=== PATIENT | female | born 1960 | race Caucasian/White ===

== ENCOUNTER 2021-07-29 10:39 | Emergency (ER) | payer OTHER ==
[2021-07-29 11:16] VITALS: BP 120/61; PULSE 56; TEMP 98.1; BMI 30.9
== END 2021-07-29 13:45 | disposition home or self-care (01) ==
LOC: JERFT 10:39
DX: S60.041A Contusion of right ring finger without damage to nail, initial encounter (principal); Y99.9 Unspecified external cause status
CPT/HCPCS: 73140-TC-RT-FY; 99283-25

== ENCOUNTER 2023-12-19 12:47 | Observation (INO) | payer OTHER ==
[2023-12-19] MEDS ORDERED: ONDANSETRON 4 MG/2 ML VIAL ONE ×2 (14:53→18:12)
[2023-12-19] MEDS ORDERED: ACETAMINOPHEN INJECTION 100 ML IVPB ONE (14:53)
[2023-12-19] MEDS ORDERED: FAMOTIDINE 20 MG/50 ML IVPB 20 MG/50 ML MG IVPB ONE (14:53)
[2023-12-19 14:58] LABS: BASO % 0.1 % (0-2.0); HEMATOCRIT 47.8 % (32.4-45.2); HEMOGLOBIN 16.2 GM/dL (10.7-15.3); LYMPH % 6.7 % (8-40); MCH 28.8 pg (25.7-33.7); MCHC 33.8 g/dl (32.0-36.0); MEAN CELL VOLUME 85.1 fl (80-96); MEAN PLT VOLUME 9.6 fl (7.5-11.1); NEUT % 84.2 % (42.8-82.8); PLATELET COUNT 248 10^3/uL (134-434); RBC 5.62 M/mm3 (3.60-5.2); RDW 14.2 % (11.6-15.6); WHITE BLOOD COUNT 13.3 K/mm3 (4.0-10.0)
[2023-12-19] MEDS: ACETAMINOPHEN 1000 MG/100 ML BAG IVPB ONE (15:02)
[2023-12-19] MEDS: ONDANSETRON 4 MG/2 ML VIAL IVPUSH ONE ×2 (15:02→18:15)
[2023-12-19] MEDS: LACTATED RINGERS SOLUTION 1000 ML INFUS.BAG IV ONE ×2 (15:02→18:15)
[2023-12-19] MEDS: FAMOTIDINE 20 MG/50 ML IVPB 20 MG/50 ML MG IVPB ONE (15:03)
[2023-12-19 15:18] LABS: POTASSIUM 3.7 mmol/L (3.5-5.1)
[2023-12-19 15:22] LABS: ALBUMIN 3.8 g/dl (3.4-5.0); BLOOD UREA NITROGEN 55.5 mg/dL (7-18); CALCIUM 9.8 mg/dL (8.5-10.1)
[2023-12-19 15:25] LABS: CREATININE 1.3 mg/dL (0.55-1.3)
[2023-12-19 15:26] LABS: TOT PROT 7.6 g/dl (6.4-8.2)
[2023-12-19 15:27] LABS: BILIRUBIN,TOTAL 0.5 mg/dL (0.2-1)
[2023-12-19 15:32] LABS: MAGNESIUM 2.5 mg/dL (1.8-2.4)
[2023-12-19] MEDS: SODIUM CHLORIDE 1,000 ML IV STA (17:02)
[2023-12-19] MEDS ORDERED: MAG HYDROX/AL HYDROX/SIMETH 30 ML UNIT-DOSE CUP ONE (18:12)
[2023-12-19] MEDS: MAG HYDROX/AL HYDROX/SIMETH 30 ML UNIT-DOSE CUP PO ONE (18:36)
[2023-12-19] MEDS: SODIUM CHLORIDE 1,000 ML IV SCH (23:53)
[2023-12-20 05:11] VITALS: BMI 32.7
[2023-12-20] MEDS: LEVOTHYROXINE NA 150 MCG TABLET PO SCH (06:12)
[2023-12-20] MEDS: HEPARIN NA (PORCINE) 5,000 UNITS/ML 1ML VIAL SQ SCH (06:12)
[2023-12-20 08:52] LABS: HEMATOCRIT 38.2 % (32.4-45.2); HEMOGLOBIN 13.2 GM/dL (10.7-15.3); MCH 29.2 pg (25.7-33.7); MCHC 34.6 g/dl (32.0-36.0); MEAN CELL VOLUME 84.5 fl (80-96); MEAN PLT VOLUME 9.3 fl (7.5-11.1); PLATELET COUNT 180 10^3/uL (134-434); RBC 4.52 M/mm3 (3.60-5.2); WHITE BLOOD COUNT 5.5 K/mm3 (4.0-10.0)
[2023-12-20 09:02] LABS: POTASSIUM 3.5 mmol/L (3.5-5.1)
[2023-12-20 09:05] LABS: MAGNESIUM 2.3 mg/dL (1.8-2.4)
[2023-12-20 09:08] LABS: CREATININE 0.6 mg/dL (0.55-1.3)
[2023-12-20 09:09] LABS: BILIRUBIN,TOTAL 0.4 mg/dL (0.2-1)
[2023-12-20 09:18] LABS: ALBUMIN 2.8 g/dl (3.4-5.0); BLOOD UREA NITROGEN 23.7 mg/dL (7-18); CALCIUM 8.2 mg/dL (8.5-10.1); TOT PROT 5.5 g/dl (6.4-8.2)
[2023-12-20] MEDS: amLODIPine BESYLATE 5 MG TABLET (FP) PO SCH (10:42)
[2023-12-20] MEDS: ATENOLOL 50 MG TABLET (FP) PO SCH (13:34)
[2023-12-20 15:30] VITALS: RESP 18
[2023-12-21 06:39] VITALS: TEMP 97.9
[2023-12-21 09:11] VITALS: BP 115/67; PULSE 63
== END 2023-12-21 14:01 | disposition home or self-care (01) ==
LOC: JER 12:47 → JERBED 20:19 → INTOOBSV 22:45 → OBSVTOIN 22:45 → J5S 12-20 04:39
PROVIDERS: ADMIT Internal Medicine
PROC: 3E033NZ Introduction of Analgesics, Hypnotics, Sedatives into Peripheral Vein, Percutaneous Approach (ICD-10-PCS; principal; 2023-12-19)
PROC: 3E033GC Introduction of Other Therapeutic Substance into Peripheral Vein, Percutaneous Approach (ICD-10-PCS; 2023-12-19)
PROC: 3E0337Z Introduction of Electrolytic and Water Balance Substance into Peripheral Vein, Percutaneous Approach (ICD-10-PCS; 2023-12-19)
PROC: 3E033GC Introduction of Other Therapeutic Substance into Peripheral Vein, Percutaneous Approach (ICD-10-PCS; 2023-12-19)
DX: A08.4 Viral intestinal infection, unspecified (principal); E86.0 Dehydration; N17.9 Acute kidney failure, unspecified; I48.91 Unspecified atrial fibrillation; I10 Essential (primary) hypertension; R00.0 Tachycardia, unspecified; Z90.89 Acquired absence of other organs; Z90.49 Acquired absence of other specified parts of digestive tract; D25.9 Leiomyoma of uterus, unspecified; Z85.850 Personal history of malignant neoplasm of thyroid; Z88.8 Allergy status to other drugs, medicaments and biological substances; Z91.013 Allergy to seafood
CPT/HCPCS: 36415; 80053; 82550; 82553; 83690; 83735; 85025; 85027; 87045; 87046; 87324; 87425; 87449; 87798; 93005; 93010; 96361; 96365; 96375; 96376; 99285-25; G0378; J0131

== ENCOUNTER 2024-08-02 16:16 | Observation (INO) | payer OTHER ==
[2024-08-02] MEDS: LACTATED RINGERS SOLUTION 1000 ML INFUS.BAG IV ONE (17:53)
[2024-08-02] MEDS: ONDANSETRON 4 MG/2 ML VIAL IVPUSH ONE ×2 (17:54→22:18)
[2024-08-02] MEDS: FAMOTIDINE 20 MG/50 ML IVPB 20 MG/50 ML MG IVPB ONE (17:54)
[2024-08-02 18:14] LABS: HEMOGLOBIN 15.5 GM/dL (10.7-15.3); MCH 28.7 pg (25.7-33.7); MCHC 33.6 g/dl (32.0-36.0); MEAN CELL VOLUME 85.4 fl (80-96); MEAN PLT VOLUME 9.9 fl (7.5-11.1); PLATELET COUNT 271 10^3/uL (134-434); RBC 5.39 M/mm3 (3.60-5.2); RDW 14.1 % (11.6-15.6); WHITE BLOOD COUNT 12.3 K/mm3 (4.0-10.0)
[2024-08-02 18:20] LABS: POTASSIUM 3.5 mmol/L (3.5-5.1)
[2024-08-02 18:21] LABS: CALCIUM 9.5 mg/dL (8.5-10.1)
[2024-08-02 18:22] LABS: ALBUMIN 3.8 g/dl (3.4-5.0)
[2024-08-02 18:25] LABS: CREATININE 0.7 mg/dL (0.55-1.3)
[2024-08-02 18:27] LABS: BILIRUBIN,TOTAL 0.4 mg/dL (0.2-1); TOT PROT 7.2 g/dl (6.4-8.2)
[2024-08-02 18:35] LABS: ANISOCYTOSIS 1+; MACROCYTOSIS 0
[2024-08-02] MEDS ORDERED: METOCLOPRAMIDE HCL INJECTION 10 MG/2 ML VIAL ONE (20:15)
[2024-08-02] MEDS: METOCLOPRAMIDE HCL INJECTION 10 MG/2 ML VIAL IVPUSH ONE (20:21)
[2024-08-02] MEDS ORDERED: ONDANSETRON 4 MG/2 ML VIAL ONE (22:13)
[2024-08-03] MEDS: LACTATED RINGERS SOLUTION 1,000 ML/1,000 ML INFUS.BAG IV SCH ×2 (00:57→10:22)
[2024-08-03] MEDS ORDERED: METOCLOPRAMIDE HCL INJECTION 10 MG/2 ML VIAL IVPUSH PRN (01:46)
[2024-08-03] MEDS ORDERED: AMPICILLIN NA/SULBACTAM NA 1.5 GM VIAL ONE (02:37)
[2024-08-03] MEDS: AMPICILLIN NA/SULBACTAM NA 1.5 GM in SODIUM CHLORIDE 100 ML IVPB SCH (02:47)
[2024-08-03 07:39] LABS: BASO % 0.1 % (0-2.0); HEMATOCRIT 40.9 % (32.4-45.2); HEMOGLOBIN 13.8 GM/dL (10.7-15.3); LYMPH % 7.2 % (8-40); MCH 28.9 pg (25.7-33.7); MCHC 33.7 g/dl (32.0-36.0); MEAN CELL VOLUME 85.7 fl (80-96); MEAN PLT VOLUME 9.7 fl (7.5-11.1); MONO % 8.7 % (3.8-10.2); PLATELET COUNT 213 10^3/uL (134-434); RBC 4.77 M/mm3 (3.60-5.2); RDW 13.8 % (11.6-15.6); WHITE BLOOD COUNT 6.2 K/mm3 (4.0-10.0)
[2024-08-03 07:52] LABS: CHLORIDE 105 mmol/L (98-107); SODIUM 141 mmol/L (136-145)
[2024-08-03 07:56] LABS: ALBUMIN 3.3 g/dl (3.4-5.0)
[2024-08-03 07:57] LABS: BLOOD UREA NITROGEN 17.9 mg/dL (7-18); CO2 31 mmol/L (21-32); MAGNESIUM 2.1 mg/dL (1.8-2.4)
[2024-08-03 07:58] LABS: GLUCOSE,RANDOM 116 mg/dL (74-106)
[2024-08-03 08:00] LABS: CREATININE 0.6 mg/dL (0.55-1.3); PHOSPHOROUS 3.4 mg/dL (2.5-4.9); SGPT/ALT 27 U/L (13-61)
[2024-08-03 08:01] LABS: BILIRUBIN,TOTAL 0.3 mg/dL (0.2-1); SGOT/AST 13 U/L (15-37); TOT PROT 6.3 g/dl (6.4-8.2)
[2024-08-03 08:02] LABS: ALK PHOS 59 U/L (45-117); ANION GAP 5 mmol/L (4-13); POTASSIUM 2.8 mmol/L (3.5-5.1)
[2024-08-03] MEDS ORDERED: LEVOTHYROXINE NA 100 MCG TABLET (FP) ONE (08:53)
[2024-08-03] MEDS ORDERED: LEVOTHYROXINE NA 50 MCG TABLET (FP) ONE (08:53)
[2024-08-03] MEDS ORDERED: KCL 10 MEQ IVPB 10 MEQ/100 ML INFUS.BAG IVPB ONE ×2 (08:54→12:09)
[2024-08-03] MEDS ORDERED: POTASSIUM CHLORIDE ORAL LIQUID 20 MEQ/15 ML ONE (08:54)
[2024-08-03] MEDS ORDERED: NOREPINEPHRINE 0.9 % NACL 8 MG/250 ML BAG IVPB ONE (09:35)
[2024-08-03] MEDS: POTASSIUM CHLORIDE ORAL LIQUID 20 MEQ/15 ML PO SCH (10:09)
[2024-08-03] MEDS: LEVOTHYROXINE NA 150 MCG TABLET PO SCH (10:09)
[2024-08-03] MEDS: KCL 10 MEQ IVPB 10 MEQ/100 ML INFUS.BAG IVPB SCH (10:12)
[2024-08-03] MEDS: VALSARTAN 160 MG TABLET PO SCH (10:12)
[2024-08-03] MEDS: ATENOLOL 50 MG TABLET (FP) PO SCH (10:13)
[2024-08-03] MEDS: ENOXAPARIN NA (PORCINE) 40 MG/0.4 ML DISP.SYRIN SQ SCH (10:13)
[2024-08-03] MEDS ORDERED: ENOXAPARIN NA (PORCINE) 40 MG/0.4 ML DISP.SYRIN SQ ONE (10:13)
[2024-08-03] MEDS: amLODIPine BESYLATE 5 MG TABLET (FP) PO SCH (10:13)
[2024-08-03 16:45] LABS: URINE BARBITURATES NEGATIVE (NEGATIVE)
[2024-08-03 16:46] LABS: COCAINE, UR NEGATIVE (NEGATIVE); METHADONE, UR NEGATIVE (NEGATIVE); OPIATES, URI NEGATIVE (NEGATIVE); PHENCYCLIDINE,URINE NEGATIVE (NEGATIVE); URINE AMPHETAMINES NEGATIVE (NEGATIVE)
[2024-08-03 16:51] LABS: URINE BENZODIAZEPINES NEGATIVE (NEGATIVE)
[2024-08-03 16:52] VITALS: BMI 31.8
[2024-08-03 19:27] LABS: POTASSIUM 3.3 mmol/L (3.5-5.1)
[2024-08-03 19:29] LABS: CALCIUM 8.9 mg/dL (8.5-10.1)
[2024-08-03 19:31] LABS: BLOOD UREA NITROGEN 17.1 mg/dL (7-18)
[2024-08-03 19:33] LABS: CREATININE 0.5 mg/dL (0.55-1.3)
[2024-08-03 20:21] LABS: HIV INTERPRETATION NEGATIVE (NEGATIVE)
[2024-08-04 09:32] LABS: HEMATOCRIT 41.9 % (32.4-45.2); HEMOGLOBIN 14.2 GM/dL (10.7-15.3); MEAN CELL VOLUME 85.5 fl (80-96); MEAN PLT VOLUME 10.1 fl (7.5-11.1); PLATELET COUNT 225 10^3/uL (134-434); RDW 14.2 % (11.6-15.6); WHITE BLOOD COUNT 5.7 K/mm3 (4.0-10.0)
[2024-08-04 10:02] LABS: POTASSIUM 3.4 mmol/L (3.5-5.1)
[2024-08-04 10:04] LABS: BLOOD UREA NITROGEN 18.8 mg/dL (7-18); CALCIUM 8.9 mg/dL (8.5-10.1); MAGNESIUM 2.2 mg/dL (1.8-2.4)
[2024-08-04 10:08] LABS: CREATININE 0.6 mg/dL (0.55-1.3); PHOSPHOROUS 2.5 mg/dL (2.5-4.9)
[2024-08-04 12:18] VITALS: BP 117/76; PULSE 66; RESP 16; TEMP 97.5
== END 2024-08-04 11:07 | disposition home or self-care (01) ==
LOC: JER 16:16 → JERBED 08-03 00:19 → J7W 08-03 16:31
PROVIDERS: ADMIT Internal Medicine; ATTEND Nurse Practitioner Acute Care
PROC: 3E033GC Introduction of Other Therapeutic Substance into Peripheral Vein, Percutaneous Approach (ICD-10-PCS; principal; 2024-08-03)
PROC: 3E03329 Introduction of Other Anti-infective into Peripheral Vein, Percutaneous Approach (ICD-10-PCS; 2024-08-03)
PROC: 3E0337Z Introduction of Electrolytic and Water Balance Substance into Peripheral Vein, Percutaneous Approach (ICD-10-PCS; 2024-08-03)
PROC: 3E013GC Introduction of Other Therapeutic Substance into Subcutaneous Tissue, Percutaneous Approach (ICD-10-PCS; 2024-08-03)
DX: K52.9 Noninfective gastroenteritis and colitis, unspecified (principal); E86.0 Dehydration; E87.6 Hypokalemia; E89.0 Postprocedural hypothyroidism; I10 Essential (primary) hypertension; Z85.42 Personal history of malignant neoplasm of other parts of uterus; Z85.850 Personal history of malignant neoplasm of thyroid; Z91.013 Allergy to seafood
CPT/HCPCS: 36415; 74177-TC; 80048; 80053; 80307; 83735; 84100; 85025; 85027; 86704; 86706; 86708; 86803; 86850; 86900; 86901; 87045; 87046; 87340; 87389; 87425; 87798; 93005; 93010; 96365; 96372; 96375; 96376; 99285-25; G0378